=== PATIENT | female | born 1955 | race Caucasian/White ===

== ENCOUNTER 2021-04-15 09:27 | Inpatient (IN) ==
[2021-04-15 10:23] LABS: Hematocrit 38 % (35-47); Hemoglobin 13.3 g/dL (12.0-16.0); Mean Corpuscular HGB Conc 36 g/dL (31-36); Mean Corpuscular Hemoglobin 30 pg (27-31); Mean Corpuscular Volume 85 fL (80-97); Mean Platelet Volume 7.2 fL (7.4-10.4); Platelet Count 221 10^3/uL (150-450); Red Blood Count 4.41 10^6 /uL (3.70-4.87); Red Cell Distribution Width 13 % (10-15); White Blood Count 12.9 10^3/uL (3.5-10.8)
[2021-04-15 10:42] LABS: Albumin 3.7 g/dL (3.2-5.2); Albumin/Globulin Ratio 1.3 (1-3); Calcium 8.5 mg/dL (8.6-10.3); EGFR African American 104.4 (>60); EGFR Non-African American 86.3 (>60); Globulin 2.9 g/dL (2-4); Magnesium 1.6 mg/dL (1.9-2.7); Potassium 4.1 mmol/L (3.5-5.0); Total Bilirubin 1.1 mg/dL (0.2-1.0); Total Protein 6.6 g/dL (6.4-8.9)
[2021-04-15 10:43] LABS: Troponin I 0.02 ng/mL (<0.03)
[2021-04-15 10:46] LABS: ABS Lymphocytes 0.7 10^3/ul (1.0-4.8); ABS Monocytes 1.1 10^3/ul (0-0.8); Lymphocyte % 5.3 %
[2021-04-15] MEDS ORDERED: Magnesium Sulfate 2 gm BAG 2 GM/50 ML BAG IVPB ONE (11:24)
[2021-04-15] MEDS ORDERED: NS 0.9% 1000 ml BAG 1,000 ML IV ONE (11:24)
[2021-04-15 13:04] LABS: Urine Appearance Turbid; Urine Bilirubin Negative (Negative); Urine Blood 3+ (Negative); Urine Color Yellow; Urine Glucose Negative (Negative); Urine Ketones Negative (Negative); Urine Nitrite Negative (Negative); Urine Protein 1+(30 mg/dL) (Negative); Urine Specific Gravity 1.009 (1.002-1.030); Urine Urobilinogen Negative (Negative)
[2021-04-15 13:14] LABS: Urine Bacteria 2+ (Absent); Urine Red Blood Cell 3+(>10/hpf) (Absent); Urine Squamous Epithelial Cell Present (Absent); Urine White Blood Cell 3+(>20/hpf) (Absent)
[2021-04-15 16:21] LABS: C Reactive Protein 9.63 mg/L (<8.01)
[2021-04-15] MEDS ORDERED: Ondansetron 4 mg VIAL 2 MG/ML 2 ml VIAL IV PRN (20:26)
[2021-04-15] MEDS ORDERED: oxyCODONE/Acetamin 5/325 mg TAB PO PRN (20:26)
[2021-04-15 20:39] LABS: TSH Ultra Thyroid Stim Horm 0.48 mcIU/mL (0.34-5.60)
[2021-04-15] MEDS: cefTRIAXone 1 gm/50 mL NS BAG 1 GM/50 ML BAG IVPB SCH (21:01)
[2021-04-15 21:42] LABS: Potassium 3.9 mmol/L (3.5-5.0)
[2021-04-15 21:43] LABS: Calcium 8.2 mg/dL (8.6-10.3); EGFR Non-African American 92.6 (>60)
[2021-04-15] MEDS: Enoxaparin 40 MG/0.4 ML SYR SUBCUT SCH (23:20)
[2021-04-16] MEDS ORDERED: NS 0.9% 1000 ml BAG 1,000 ML IV SCH (00:45)
[2021-04-16 04:12] LABS: Calcium 7.8 mg/dL (8.6-10.3); EGFR Non-African American 92.6 (>60); Potassium 3.7 mmol/L (3.5-5.0)
[2021-04-16 07:06] LABS: ABS Eosinophils 0.3 10^3/ul (0-0.6); ABS Monocytes 1.2 10^3/ul (0-0.8); ABS Neutrophils 9.5 10^3/ul (1.5-7.7); Eosinophil % 2.3 %; Hematocrit 39 % (35-47); Lymphocyte % 8.6 %; Mean Corpuscular HGB Conc 36 g/dL (31-36); Mean Corpuscular Hemoglobin 31 pg (27-31); Mean Corpuscular Volume 87 fL (80-97); Mean Platelet Volume 8.5 fL (7.4-10.4); Nucleated Red Blood Cells % 0.3; Platelet Count 246 10^3/uL (150-450); Red Blood Count 4.49 10^6 /uL (3.70-4.87); Red Cell Distribution Width 14 % (10-15)
[2021-04-16 07:15] LABS: Albumin 3.4 g/dL (3.2-5.2); Albumin/Globulin Ratio 1.2 (1-3); EGFR African American 108.1 (>60); EGFR Non-African American 89.3 (>60); Globulin 2.9 g/dL (2-4); Potassium 3.9 mmol/L (3.5-5.0); Total Bilirubin 0.7 mg/dL (0.2-1.0); Total Protein 6.3 g/dL (6.4-8.9)
[2021-04-16] MEDS: NS 0.9% 1000 ml BAG 1,000 ML IV SCH (10:01)
[2021-04-16] MEDS ORDERED: Senna TAB 8.6 mg TAB PO PRN (16:05)
[2021-04-16 16:36] LABS: Magnesium 2.2 mg/dL (1.9-2.7)
[2021-04-16 17:26] LABS: EGFR African American 152.4 (>60); Potassium 3.7 mmol/L (3.5-5.0)
[2021-04-16] MEDS: cefTRIAXone 1 gm/50 mL NS BAG 1 GM/50 ML BAG IVPB SCH (18:11)
[2021-04-16] MEDS: Enoxaparin 40 MG/0.4 ML SYR SUBCUT SCH (18:13)
[2021-04-17] MEDS: NS 0.9% 1000 ml BAG 1,000 ML IV SCH (02:04)
[2021-04-17 07:13] LABS: ABS Eosinophils 0.1 10^3/ul (0-0.6); ABS Lymphocytes 1.1 10^3/ul (1.0-4.8); ABS Monocytes 0.9 10^3/ul (0-0.8); ABS Neutrophils 6.5 10^3/ul (1.5-7.7); Eosinophil % 0.8 %; Hematocrit 35 % (35-47); Hemoglobin 12.3 g/dL (12.0-16.0); Lymphocyte % 13.2 %; Mean Corpuscular HGB Conc 35 g/dL (31-36); Mean Corpuscular Hemoglobin 31 pg (27-31); Mean Corpuscular Volume 87 fL (80-97); Mean Platelet Volume 7.1 fL (7.4-10.4); Platelet Count 175 10^3/uL (150-450); Red Blood Count 4.02 10^6 /uL (3.70-4.87); Red Cell Distribution Width 14 % (10-15); White Blood Count 8.6 10^3/uL (3.5-10.8)
[2021-04-17 07:30] LABS: Calcium 7.8 mg/dL (8.6-10.3); EGFR Non-African American 135.5 (>60); Potassium 3.5 mmol/L (3.5-5.0)
[2021-04-17] MEDS ORDERED: Lactated Ringers 1000 ml BAG 1,000 ML IV SCH (09:00)
[2021-04-17] MEDS: cefTRIAXone 1 gm/50 mL NS BAG 1 GM/50 ML BAG IVPB SCH (17:36)
[2021-04-17] MEDS: Enoxaparin 40 MG/0.4 ML SYR SUBCUT SCH (17:36)
[2021-04-18] MEDS: Enoxaparin 40 MG/0.4 ML SYR SUBCUT SCH (17:05)
[2021-04-19] MEDS: Enoxaparin 40 MG/0.4 ML SYR SUBCUT SCH (17:44)
[2021-04-20] MEDS: Enoxaparin 40 MG/0.4 ML SYR SUBCUT SCH (16:07)
[2021-04-21 05:54] LABS: ABS Eosinophils 0.2 10^3/ul (0-0.6); ABS Lymphocytes 2.1 10^3/ul (1.0-4.8); ABS Monocytes 0.6 10^3/ul (0-0.8); ABS Neutrophils 2.6 10^3/ul (1.5-7.7); Eosinophil % 4.4 %; Hematocrit 37 % (35-47); Hemoglobin 12.8 g/dL (12.0-16.0); Mean Corpuscular HGB Conc 34 g/dL (31-36); Mean Corpuscular Hemoglobin 30 pg (27-31); Mean Corpuscular Volume 88 fL (80-97); Mean Platelet Volume 6.8 fL (7.4-10.4); Platelet Count 254 10^3/uL (150-450); Red Blood Count 4.24 10^6 /uL (3.70-4.87); Red Cell Distribution Width 14 % (10-15); White Blood Count 5.6 10^3/uL (3.5-10.8)
[2021-04-21] MEDS ORDERED: NS 0.9% 500 ML @ Wide Open(Bolus) 500ml IV ONE (06:00)
[2021-04-21 06:03] LABS: Albumin 3.3 g/dL (3.2-5.2); Albumin/Globulin Ratio 1.2 (1-3); Calcium 8.5 mg/dL (8.6-10.3); EGFR Non-African American 92.6 (>60); Globulin 2.7 g/dL (2-4); Potassium 3.9 mmol/L (3.5-5.0); Total Bilirubin 0.5 mg/dL (0.2-1.0)
[2021-04-21] MEDS: Magnesium Hydroxide LIQ 30 ML UDC PO PRN (08:19)
[2021-04-21] MEDS: Enoxaparin 40 MG/0.4 ML SYR SUBCUT SCH (16:15)
[2021-04-22] MEDS: Magnesium Hydroxide LIQ 30 ML UDC PO PRN (10:52)
[2021-04-22] MEDS: Enoxaparin 40 MG/0.4 ML SYR SUBCUT SCH (17:23)
[2021-04-23] MEDS: Magnesium Hydroxide LIQ 30 ML UDC PO PRN (07:36)
[2021-04-23 11:28] VITALS: BP 94/48
== END 2021-04-23 15:05 | DRG 563 ==
LOC: ED 09:27 → MEDTELE 15:12 → MED 04-23 03:26
PROVIDERS: ADMIT Internal Medicine; ATTEND Internal Medicine